=== PATIENT | female | born 1960 | race Caucasian/White ===

== ENCOUNTER → 2017-10-28 | Outpatient (CLI) | payer BC, SELFPAY | PROVIDERS: Visit Provider Obstetrics & Gynecology | DX: Z12.31 Encounter for screening mammogram for malignant neoplasm of breast (principal); N95.1 Menopausal and female climacteric states | CPT/HCPCS: 77067; G0202 ==

== ENCOUNTER → 2019-01-12 15:50 | Outpatient (CLI) | payer BC, SELFPAY ==
--- NOTE | 2019-01-12 15:54 | MM_ITS ---
MM Dig screening mamm BI w/CAD ORDERING PHYSICIAN : ARUNA Albarado PATIENT AGE: 58 years GENDER: Female COMPARISON: October 2017, August 20162012. Also June 20102010 INDICATION: Routine SCREENING no hormones no new complaints. Family history. Maternal grandmother TECHNIQUE: Standard CC and MLO images were obtained. R2 CAD reviewed. Additional left breast MLO and CC nipple profile views performed.. FINDINGS: Low-density breast bilaterally with no new dominant mass nor suspicious calcifications. No significant new findings RIGHT BREAST:No new areas of significant concern. Small area of density central right breast on cc view is seen on 2009 and 2010 mammogram.-. Stable feature. LEFT BREAST:No new areas of concern . Stable small intramammary nodes deep breast IMPRESSION: No significant new areas of concern bowel follow-up in one year recommended. BI-RADS Category: 2 Benign Finding(s) RECOMMENDED FOLLOW-UP: 1YR 1 YEAR FOLLOW-UP (A letter has been sent to the patient regarding results of the study.)
== END ==
PROVIDERS: PCP Physician Assistant; Visit Provider Physician Assistant
DX: Z12.31 Encounter for screening mammogram for malignant neoplasm of breast (principal)
CPT/HCPCS: 77067

== ENCOUNTER → 2019-01-31 12:15 | Outpatient (CLI) | payer BC, SELFPAY ==
--- NOTE | 2019-01-31 12:19 | XR_ITS ---
XR knee LT 3V HISTORY: ITS.REASON: BILAT KNEE PAIN ORDERING PHYSICIAN: Nissa Hensley MD PATIENT AGE: 58 years COMPARISON: Right knee same date FINDINGS: No fracture or dislocation. No lytic or blastic change. Normal mineralization. No significant arthritic changes evident. There is minor spurring of the tibial spines. No other significant findings IMPRESSION: Minor degenerative changes as noted, no fracture seen
--- NOTE | 2019-01-31 12:19 | XR_ITS ---
XR knee RT 3V HISTORY: ITS.REASON: BILAT KNEE PAIN ORDERING PHYSICIAN: Nissa Hensley MD PATIENT AGE: 58 years COMPARISON: Left knee same date FINDINGS: No fracture or dislocation. No lytic or blastic change. Normal mineralization. No significant arthritic changes evident. There is minor spurring of the tibial spines. No other significant findings IMPRESSION: Minor degenerative change as noted
== END ==
PROVIDERS: PCP Emergency Medicine; Visit Provider Emergency Medicine
DX: M25.562 Pain in left knee (principal); M25.561 Pain in right knee
CPT/HCPCS: 73562

== ENCOUNTER → 2020-05-15 10:43 | Outpatient (CLI) | payer BC, SELFPAY ==
--- NOTE | 2020-05-15 10:47 | MM_ITS ---
PROCEDURE: MM DIG SCREENING MAMM BI W/CAD Digital Breast Tomosynthesis Included CLINICAL INDICATION: SCREENING There is a history of breast cancer in patient's maternal grandmother diagnosed after menopause. COMPARISON: [facility] DIG MAMM-SCREEN NAUN from 08/17/2013 [facility] DIG MAMM-SCREEN NAUN from 08/26/2016 [facility] DIG MAMM-SCREEN NAUN W/CAD from 10/28/2017 [facility] MM Dig screening mamm BI w/CAD from 01/12/2019 TECHNIQUE: Standard CC and MLO images and 3D Tomosynthesis was obtained. R2 CAD reviewed. FINDINGS: The breasts are composed primarily of fat with minimal scattered fibroglandular densities throughout each breast. There is a low-lying node left axilla. There is no new or suspicious lesion in either breast and no suspicious microcalcifications. There couple of stable tiny benign-appearing nodular densities right breast. IMPRESSION: Fatty type breast parenchyma with no suspicious lesions seen BI-RAD Category: 2 Benign Finding(s) FOLLOW-UP: 1YR 1 Year Follow-up (A letter has been sent to the patient regarding results of the study.) Dictated by: Dr. Antione Zavala MD 05/17/2020 15:[address] Antione Zavala MD in [place] 05/17/2020 15:48
== END ==
PROVIDERS: PCP Physician Assistant; Visit Provider Physician Assistant
DX: Z12.31 Encounter for screening mammogram for malignant neoplasm of breast (principal)
CPT/HCPCS: 77063; 77067

== ENCOUNTER → 2021-03-26 13:12 | Outpatient (POV) | payer BC, SELFPAY | PROVIDERS: Visit Provider Dermatology | DX: Z00.00 Encounter for general adult medical examination without abnormal findings (principal) ==

== ENCOUNTER → 2021-11-19 11:41 | Outpatient (CLI) | payer BC, SELFPAY ==
--- NOTE | 2021-11-19 11:47 | XR_ITS ---
FINAL REPORT CLINICAL HISTORY: COVID OUTPATIENT non smoker, no sx, covid exposure FINDINGS: SINGLE VIEW CHEST. The heart is normal in size. The mediastinum is unremarkable. The lungs are clear. There is no pneumothorax. There is a sclerotic focus in the proximal right humerus of uncertain etiology. IMPRESSION: No acute cardiopulmonary process. Sclerotic focus in proximal right humerus of uncertain etiology. Consider follow-up radiographs. Reviewed, Interpreted and Dictated by Wicho Flores III, MD Transcribed by Kathy Paez Authenticated by Wicho Flores III, MD on 11/19/2021 12:41:39 PM [facility]
[2021-11-19 12:17] LABS: Adenovirus,PCR Not Detected (NotDetected); Bordetella Pertussis Not Detected (NotDetected); Chlamydophila Pneumoniae, PCR Not Detected (NotDetected); Coronavirus 229E Not Detected (NotDetected); Coronavirus NL63 Not Detected (NotDetected); Coronavirus OC43 Not Detected (NotDetected); Coronovirus HKU1,PCR Not Detected (NotDetected); Human Metapneumovirus Not Detected (NotDetected); Influenza A, PCR Not Detected (NotDetected); Influenza AH1, 2009 Not Detected (NotDetected); Influenza AH1, PCR Not Detected (NotDetected); Influenza AH3,PCR Not Detected (NotDetected); Influenza B, PCR Not Detected (NotDetected); Mycoplasma Pneumoniae, PCR Not Detected (NotDetected); Parainfluenza 1, PCR Not Detected (NotDetected); Parainfluenza 2, PCR Not Detected (NotDetected); Parainfluenza 3, PCR Not Detected (NotDetected); Parainfluenza 4, PCR Not Detected (NotDetected); Respiratory Syncytial Virus Not Detected (NotDetected); Rhinovirus/Enterovirus Not Detected (NotDetected)
[2021-11-19 12:28] LABS: Basophils # 0.1 K/mm3 (0-0.2); Basophils % 1.5 % (0.1-2.0); Eosinophils # 0.2 K/mm3 (0.0-0.4); Eosinophils % 2.5 % (0.1-12.0); Hematocrit 46.2 % (37.0-47.0); Hemoglobin 14.2 g/dL (12.2-16.2); Lymphocytes # 3.2 K/mm3 (0.7-4.5); Lymphocytes % 41.7 % (10-50); Mean Corpuscular HGB Conc 30.7 g/dL (31.8-35.4); Mean Corpuscular Hemoglobin 28.7 pg (27.0-31.2); Mean Corpuscular Volume 93.5 fl (81-99); Mean Platelet Volume 7.4 fl (7.4-10.4); Monocytes # 0.7 K/mm3 (0.1-1.0); Monocytes % 8.7 % (1.7-9.3); Neutrophils # 3.5 K/mm3 (1.8-7.8); Neutrophils % 45.7 % (37.0-80.0); Platelet Count 388 K/mm3 (142-424); Red Blood Count 4.95 M/mm3 (4.20-5.40); Red Cell Distribution Width 14.7 % (11.5-17.5); White Blood Count 7.7 K/mm3 (4.8-10.8)
[2021-11-19 16:05] LABS: Coronavirus 19, PCR Detected (NotDetected)
== END ==
PROVIDERS: PCP Physician Assistant; Visit Provider Family Medicine
DX: U07.1 COVID-19 (principal)
CPT/HCPCS: 36415; 71045; 85025; 87581; 87632; 87798; C9803; U0003; U0005

== ENCOUNTER → 2021-12-10 12:29 | Outpatient (CLI) | payer BC, SELFPAY ==
--- NOTE | 2021-12-10 13:14 | ECG_ITS ---
APPROVED REPORT Exam: Resting ECG HR:62 bpm ECG Measurements Heart Rate 62 AXES WY 182 P 68 QRSd 106 QRS 134 QT 378 T 68 QTc 384 Conclusion SINUS RHYTHM RIGHT AXIS DEVIATION [QRS AXIS > 100] LOW QRS VOLTAGE [QRS DEFLECTION < 0.5/1.0 mV IN LIMB/CHEST LEADS] ABNORMAL ECG UNCONFIRMED REPORT Electronically signed by : Bryson Montana MD 12/10/2021 17:44:13
== END ==
PROVIDERS: PCP Family Medicine; Visit Provider Family Medicine
DX: R07.9 Chest pain, unspecified (principal)
CPT/HCPCS: 93005

== ENCOUNTER → 2021-12-17 11:06 | Outpatient (CLI) | payer BC, SELFPAY ==
--- NOTE | 2021-12-17 | CA_ITS ---
APPROVED REPORT Exam: Exercise Treadmill Technologist: Radha Clay Ht: 5 ft 6 in Wt: 224 lbs BSA: 2.10 m2 HR: 70 bpm BP: 148/66 mmHg Indications: Chest pain Medical History Medications: Omeprazole,,,,, Hyoscyamine,,,,, Amlod/Benazepril,,,,, Sertraline,,,,, Stress Test Details Test: Manual Treadmill HR Resting HR: 83 bpm Max Heart Rate (APMHR): 157.174808 bpm Max HR Achieved: 141 bpm Target HR (85% APMHR): 133.527135 bpm % of APMHR: 89.81 Recovery HR: 90 bpm BP Resting BP: 148.0/66.0 mmHg Max BP: 159.0/71.0 mmHg Recovery BP: 126.0/76.0 mmHg ECG Resting ECG: Normal sinus rhythm, rightward axis, low voltage QRS, poor R wave progression Clinical Exercise duration: 06:15 min Highest Stage Achieved: Exercise capacity: 5.3 METs Stress ECG Conclusion Patient exercised 6:15 total; 5 minutes in Stage I Roverto Protocol, then speed was increased to 2 mph the last 1:15. Symptoms: Shortness of air. No chest pain. Arrhythmias/Ectopy: None ST-T Changes: Normal ST response to exercise. Conclusion: Normal GXT. Myoview images reported separately. Test Summary REST . . . . . . . Sitting REST . . . . . . . Sitting REST 03:48 0.0 0.0 83 . 148/ 66 . . Stage 1 01:00 10.0 1.7 100 . . . . Stage 1 02:00 10.0 1.7 . . . . . Stage 1 . . . . . . . Stage held Stage 1 03:00 10.0 1.7 123 . . . . Stage 1 . . . . . . . Shortness of Breath Stage 1 04:00 10.0 1.7 130 . . . . Stage 1 . . . . . . . Myoview Injected Stage 1 . . . . . . . Protocol changed to Manual Treadmill Stage 1 05:00 10.0 2.0 133 . . . . Stage 1 06:00 10.0 2.0 139 . . . . Stage 1 . . . . . . . Stage resumed Stage 1 06:15 10.0 2.0 140 . . . Stop exercise at 06:15 RECOVERY 01:00 0.0 0.0 130 . 146/ 80 . . RECOVERY 02:00 0.0 0.0 113 . 146/ 80 . . RECOVERY 03:00 0.0 0.0 100 . 146/ 80 . . RECOVERY 04:00 0.0 0.0 97 . 159/ 71 . . RECOVERY 05:00 0.0 0.0 89 . 126/ 76 . . RECOVERY 05:26 0.0 0.0 91 . 126/ 76 . . Electronically signed by : Hood Ponce MD 12/17/2021 19:38:28
--- NOTE | 2021-12-17 11:11 | NM_ITS ---
APPROVED REPORT Exam: Nuclear Stress Test Indication: Chest pain, SOB, Fatigue, HTN, Family history Patient Location: Outpatient Stress Tech: Radha Clay NM Tech:Jacquelin Mancilla, ARRT, RT (R)(N) Ht: 5 ft 6 in Wt: 224 lbs Bra Size: 40DD HR: 70 bpm BP: 148/66 mmHg BSA: 2.10 m2 BMI: 36.1 History: Chest pain, SOB, Fatigue, HTN, Family history Procedure: Patient exercised on Roverto protocol 6:15 minutes and sec, resting heart rate 70 bpm, resting blood pressure 148/66 mmHg, with exercise maximum heart rate achived was 141 bpm which is 90 % of the maximum predicted heart rate and blood pressure was 159/71 mmHg. Test was stopped due to SOA. Patient denied any complaint of chest pain. Patient has poor exercise capacity, achieved 5.3 METs of workload on treadmill, the blood pressure response to exercise was Abnormal. Electrocardiogram Resting electrocardiogram showed sinus rhythm, with exercise there is less than 1.[address] segment depression noted from the baseline EKG. The EKG portion of the exercise Myoview is negative for ischemia. Cardiac Stress and Resting SPECT Images: Cardiac Stress and Resting SPECT images were obtained using technetium 99m Myoview 31.1 mCi stress and 10.21 mCi at rest. Gated SPECT for analysis of segmental wall motion and calculation of the ejection fraction also done. Cardiac stress and rest SPECT images show uniform myocardial activity without segmental perfusion abnormality, computer derived ejection fraction is 67% with no regional wall motion abnormality, right ventricle is normal size and contractility. Conclusion: 1. The EKG portion of the exercise Myoview is negative for ischemia, patient has poor exercise capacity 5.3 METs of workload on treadmill, the blood pressure response to exercise was abnormal, there was no exercise-induced chest discomfort. 2. No scintigraphic evidence of reversible ischemia seen at this level of exercise, compared to ejection fraction 67% with no regional wall motion abnormality, right ventricle is normal size and contractility. Electronically signed by : Hood Ponce MD 12/17/2021 19:56:34
--- NOTE | 2021-12-17 13:17 | HMH.ITSHM ---
Current Home Medications as stated by this patient Shanel Luu or claims service representative. []SERTALINE OMEPRAZOLE AMLOD/BENAZP HYOSCYAMINE
== END ==
PROVIDERS: PCP Family Medicine; Visit Provider Family Medicine
DX: R07.9 Chest pain, unspecified (principal)
CPT/HCPCS: 78452; 93017; A9502

== ENCOUNTER → 2022-05-07 09:39 | Outpatient (CLI) | payer BC, SELFPAY ==
--- NOTE | 2022-05-07 09:43 | XR_ITS ---
FINAL REPORT CLINICAL HISTORY: A PLACE WAS SEEN ON ARM DURING ANOTHER XR. CHECKING SPOT FINDINGS: RIGHT HUMERUS Two views were obtained. There is no acute fracture or dislocation. The joint spaces appear normal. No soft tissue abnormality is identified. There is a 15 mm sclerotic focus in the proximal humerus which is nonspecific, may represent bone island or other sclerotic lesion. IMPRESSION: Sclerotic focus in the proximal humerus as above. Consider follow-up radiographs or bone scan. Reviewed, Interpreted and Dictated by Wicho Flores III, MD Transcribed by Cassandra Esparza Authenticated and [facility]
== END ==
PROVIDERS: PCP Family Medicine; Visit Provider Family Medicine
DX: R93.6 Abnormal findings on diagnostic imaging of limbs (principal)
CPT/HCPCS: 73060

== ENCOUNTER → 2023-10-07 22:00 | Outpatient (CLI) | payer BC, SELFPAY ==
[2023-10-07 18:23] LABS: Coronavirus 19, PCR Not Detected (NotDetected); Influenza A, PCR Not Detected (NotDetected); Influenza B, PCR Not Detected (NotDetected)
== END ==
PROVIDERS: PCP Nurse Practitioner Family; Visit Provider Nurse Practitioner Family
DX: R05.9 Cough, unspecified (principal)
CPT/HCPCS: 87636

== ENCOUNTER 2024-04-21 13:10 | Outpatient (CLI) | payer BC, SELFPAY ==
--- NOTE | 2024-04-21 13:13 | MM_ITS ---
PROCEDURE INFORMATION: Exam: MG Bilateral Screening 3D Mammography Exam date and time: 04/21/2024 1:11 PM Age: 63 years old Clinical indication: Screening examination TECHNIQUE: Imaging protocol: Bilateral Screening tomosynthesis and 2D mammography including computer-aided detection (CAD) when performed. COMPARISON: 1. MG MM DIG SCREENING MAMM BI W/CAD 05/15/2020 10:57 AM 2. MG SCBI MM Dig screening mamm BI w/CAD 01/12/2019 4:27 PM FINDINGS: MAMMOGRAPHY: Breast composition: The breasts are almost entirely fatty. Mass: None. Architectural distortion: None. Calcifications: No suspicious calcifications. Asymmetric density: None. Skin thickening: None. Axillary adenopathy: None. IMPRESSION: No mammographic evidence of malignancy. Annual screening is recommended unless otherwise clinically indicated. ASSESSMENT: BI-RADS Category 1: Negative
== END 2024-04-21 23:59 | disposition home or self-care (01) ==
LOC: RAD 13:10
PROVIDERS: PCP Physician Assistant; Visit Provider Physician Assistant
DX: Z12.31 Encounter for screening mammogram for malignant neoplasm of breast (principal)
CPT/HCPCS: 77063; 77067

== ENCOUNTER 2024-07-06 19:09 | Outpatient (CLI) | payer BC, SELFPAY ==
[2024-07-06 18:25] LABS: Bordetella Pertussis Not Detected (NotDetected); Chlamydophila Pneumoniae, PCR Not Detected (NotDetected); Coronavirus 19, PCR Not Detected (NotDetected); Coronavirus 229E Not Detected (NotDetected); Coronavirus NL63 Not Detected (NotDetected); Coronavirus OC43 Not Detected (NotDetected); Coronovirus HKU1,PCR Not Detected (NotDetected); Human Metapneumovirus Not Detected (NotDetected); Influenza A, PCR Not Detected (NotDetected); Influenza AH1, 2009 Not Detected (NotDetected); Influenza AH1, PCR Not Detected (NotDetected); Influenza AH3,PCR Not Detected (NotDetected); Influenza B, PCR Not Detected (NotDetected); Mycoplasma Pneumoniae, PCR Not Detected (NotDetected); Parainfluenza 1, PCR Not Detected (NotDetected); Parainfluenza 2, PCR Not Detected (NotDetected); Parainfluenza 3, PCR Not Detected (NotDetected); Parainfluenza 4, PCR Not Detected (NotDetected); Respiratory Syncytial Virus Not Detected (NotDetected); Rhinovirus/Enterovirus Not Detected (NotDetected)
[2024-07-11 22:13] LABS: Adenovirus,PCR Not Detected (NotDetected)
== END 2024-07-06 23:59 | disposition home or self-care (01) ==
LOC: LAB.DROPOF 19:09
PROVIDERS: PCP Nurse Practitioner Family; Visit Provider Nurse Practitioner Family
DX: R09.89 Other specified symptoms and signs involving the circulatory and respiratory systems (principal)
CPT/HCPCS: 87265; 87486; 87581; 87632; 87635

== ENCOUNTER 2025-05-12 08:21 | Outpatient (CLI) | payer BC, SELFPAY ==
--- OUTSIDE RECORDS SUMMARY | 2023-12-18 07:00 | XMS_ITS ---
Author Organization [facility] Address [address] [facility] [address] [place] [id number] Care Team Providers Care Senior Teller Name Role Phone Aric Mejia Primary Care Provider [phone] Chelo Diego Unavailable [phone] Allergies Allergen (clinical drug ingredient) Drug/Non Drug Allergy documented on EMR Reaction Allergy Type Onset Date Status Penicillin Unknown Drug Allergy Active Results Component Value Reference Range Notes CBC Fingerstick (in house) Reviewed date:12/18/2023 12:34:57 PM Interpretation: Performing Lab: Notes/Report: wbc 10.3 3.5 - 10 lym 26.4 15 - 50 mid 5.6 2 - 15 gran 68.0 35 - 80 rbc 4.93 3.5 - 5.5 hgb 13.9 11.5 - 16.5 hct 43.0 35 - 55 mcv 87.3 75 - 100 mch 28.2 25 - 35 mchc 32.3 31 - 38 plat 338 100 - 400 P-Amylase Reviewed date:12/21/2023 09:31:40 AM Interpretation:Normal Performing Lab: Notes/Report: Test performed by [facility] [address] , [place] [address] Keven Leary MD, Molding Technician CLIA: [id number] Amylase 47 28-100 U/L P-Comprehensive Metabolic Pa steve (CMP) Reviewed date:12/21/2023 09:31:40 AM Interpretation:Normal Performing Lab: Notes/Report: Test performed by [facility] [address] [place], [place] [address] , [place] [address] Keven Leary MD, Molding Technician CLIA: [id number] Sodium 142 135-145 mEq/L Potassium 4.4 3.5-5.3 mEq/L Chloride 104 97-108 mEq/L CO2 22 22-32 mEq/L Glucose 96 65-99 mg/dL BUN 12 8-23 mg/dL Creatinine 0.63 0.50-1.00 mg/dL Calcium 9.2 8.6-10.4 mg/dL eGFR by Creatinine 98 >59 mL/min/1.73m2 Protein 7.4 6.0-8.3 g/dL Albumin 4.7 3.5-5.3 g/dL Alkaline Phosphatase 94 35-121 IU/L ALT (SGPT) 23 <5-47 IU/L AST (SGOT) 23 <5-40 IU/L Bilirubin, Total 0.4 <0.2-1.2 mg/dL A/G Ratio 1.7 1.1-2.5 mg/dL P-Lipase Reviewed date:12/21/2023 09:31:40 AM Interpretation:Normal Performing Lab: Notes/Report: Test performed by [facility] [address] [place] [address] [place] [address] Keven Leary MD, Molding Technician CLIA: [id number] Lipase 22.0 13.0-60.0 u/L P-TSH reflex to FT4 Reviewed date:12/21/2023 09:31:40 AM Interpretation:Normal Performing Lab: Notes/Report: Test performed by [facility] [address] , [place] [id number] Keven Leary MD, Molding Technician CLIA: [id number] TSH reflex to FT4 1.04 0.43-5.25 mU/L REASON FOR VISIT sour, bloated stomach Medications Medication SIG (Take, Route, Frequency, Duration) Notes Start Date End Date Status Carafate 1 GM 1 tab(s) orally Two times a day 12/26/2021 Not-Taking Multivitamin - 1 tab(s) orally once a day; Duration: 30 day(s) Active Align 4 MG 1 cap(s) orally once a day; Duration: 28 day(s) 12/18/2021 Active Omeprazole 40 MG 1 cap(s) orally once a day; Duration: 90 days Active Sertraline HCl 100 MG 1 tab(s) orally on ce a day; Duration: 90 days Active Lotrel 10-20 MG 1 cap(s) orally once a day; Duration: 90 days Active Hyoscyamine Sulfate SL 0.125 MG 1 tablet under the tongue and allow to dissolve as needed Sublingual Three times a day, prn for abdominal cramping 12/18/2023 Active levoFLOXacin 500 MG 1 tablet Orally Once a day; Duration: 7 days 12/18/2023 Active Vital Signs Blood pressure systolic 112 mm Hg 12/18/19 24 Blood pressure diastolic 80 mm Hg 024 Heart Rate 84 /min 12/18/2023 Height 66.50 in 12/18/2023 Weight 232.0 lbs 12/18/2023 BMI 36.88 kg/m2 12/18/2023 Encounters Encounter Location Date Provider Diagnosis [facility] [address], [place] [id number] 12/18/2023 Chelo Diego Epigastric pain R10. 13 ; Abdominal cramping R10.9 and Acute diarrhea R19.7 Assessments Encounter Date Diagnosis (ICD Code) Assessment Notes Treatment Notes Treatment Clinical Notes Section Notes 12/18/2023 Epigastric pain (ICD-10 - R10.13) 12/18/2023 Abdominal cramping (ICD-10 - R10.9) 12/18/2023 Acute diarrhea (ICD-10 - R19.7) Plan Of Treatment Medication Medication Name Sig Start Date Stop Date Notes Hyoscyamine Sulfate SL 0.125 MG 1 tablet under the tongue and allow to dissolve as needed Sublingual Three times a day, prn for abdominal cramping 12/18/2023 levoFLOXacin 500 MG 1 tablet Orally Once a day; Duration: 7 days 12/18/2023 Next Appt Details Follow Up: 1 Week, Reason: Progress Notes * JHONY ELLISMINHOB: [birth year] (64 yo F)Acc No.[id number]:12/18/2023 Progress Notes Patient: SHELLY EDMONDSON Provider: ARUNA Tellez :1960 A ge:63 Y S ex:Female Date:12/18/2023 Address:[address] [place] [address], [place], [id number] Pcp:Aric Mejia Subjective: * Chief Complaints: * 1 . Sour, bloated stomach. * HPI: G astroenterology: The pt is here today with c/o epigastric abdominal pain, bloating and nausea. Pt states she had some diarrhea this morning. Pt states on Thursday she ate something with a lot of mayonaise in it and since then she has not been able to eat much. 63 year old female presents with c/o Abdominal Pain e pigastric. c/o Acid Reflux. c/o Nausea. c/o Diarrhea. Denies : Vomiting. D enies : Fever. * ROS: C ARDIOLOGY: no C hest pain. n o S hortness of breath. ? G ASTROENTEROLOGY: no N ausea. n o V omiting. n o D iarrhea.? U ROLOGY: no D ifficulty urinating. n o B lood in urine. * Medical History: M edical History Verified. * Surgical History: c holecystectomy 1993, child 1982, child 1991. * Hospitalization/Major Diagno stic Procedure: s ee above . * Family History: F ather: , diagnosed with Cancer. M other: alive, diagnosed with Heart Disease.?4 sister(s) - healthy. 2 daughter(s) - healthy. . Father with biliary cancer. * Social History: C URRENT TOBACCO USE: No . C affeine: yes, frequency:. Exercise: no. Home smoke detector use: yes. Marital Status: Single. Past smoking status: never smoked. Recreational drug use: no. Alcohol: No. Sexually active: no. * Medications: T aking Lotrel 10-20 MG Capsule 1 cap(s) orally once a day , Taking Omeprazole 40 MG Capsule Delayed Release 1 cap(s) orally once a day , Taking Sertraline HCl 100 MG Tablet 1 tab(s) orally once a day , Taking Multivitamin - Tablet 1 tab(s) orally once a day , Taking Align 4 MG Capsule 1 cap(s) orally once a day , Not-Taking Carafate 1 GM Tablet 1 tab(s) orally Two times a day , Medication List reviewed and reconciled with the patient * Allergies: P enicillin. Objective: * Vitals: W t:232.0, Temp:98.4, BP:112/80, HR:84, Nurse:JUSTIN, Ht: 66.50, BMI:36.88. * Examination: G astroenterology: General Appearance: p leasant, NAD. O ral cavity: n ormal. S clera: a nicteric. H eart sounds: r egular, normal S1 S2, no murmurs. L ungs: c lear, no rales or wheezes. A bdomen: BS present, soft, no guarding or rigidity, no masses felt, ttp in the epigastric area. Assessment: * Assessment: 1. E pigastric pain - R10.13 (Primary) 2 . A bdominal cramping - R10.9 3 . A cute diarrhea - R19.7 Plan: * Treatment: Value Reference Range A mylaskevin 47 28-100 - U/L * Theresa Crespo 12/21/2023 9: 30:56 AM >Patient informed of normal results. ?LAB: P-Comprehensive Metabolic Panel (CMP) (Collection Date & Time - 12/18/2023 10:50 AM)?Normal* Value Reference Range A /G Ratio 1.7 1.1-2.5 - mg/dL * A lbumin 4.7 3.5-5.3 - g/dL * A lkaline Phosphatase 94 35-121 - IU/L * A LT (SGPT) 23 <5-47 - IU/L * A ST (SGOT) 23 <5-40 - IU/L * B ilirubin, Total 0.4 <0.2-1.2 - mg/dL * B UN 12 8-23 - mg/dL * C alcium 9.2 8.6-10.4 - mg/dL * C hloride 104 97-108 - mEq/L * C O2 22 22-32 - mEq/L * C reatinine 0.63 0.50-1.00 - mg/dL * G lucose 96 65-99 - mg/dL * P otassium 4.4 3.5-5.3 - mEq/L * S odium 142 135-145 - mEq/L * P rotein 7.4 6.0-8.3 - g/dL * e GFR by Creatinine 98 >59 - mL/min/1.73m2 * Theresa Crespo 12/21/2023 9: 30:56 AM >Patient informed of normal results. ?LAB: P-Lipase (Collection Date & Time - 12/18/2023 10:50 AM)?Normal* Value Reference Range L ipase 22.0 13.0-60.0 - u/L * Theresa Crespo 12/21/2023 9: 30:56 AM >Patient informed of normal results. ?LAB: P-TSH reflex to FT4 (Collection Date & Time - 12/18/2023 10:50 AM)? Normal* Value Reference Range T SH reflex to FT4 1.04 0.43-5.25 - mU/L * Theresa Crespo 12/21/2023 9: 30:56 AM >Patient informed of normal results. ?LAB: CBC Fingerstick (in house) (Collection Date & Time - 12/18/2023)* Value Reference Range w bc 10.3 3.5 - 10 * l ym 26.4 15 - 50 * m id 5.6 2 - 15 * g ran 68.0 35 - 80 * r bc 4.93 3.5 - 5.5 * h gb 13.9 11.5 - 16.5 * h ct 43.0 35 - 55 * m cv 87.3 75 - 100 * m ch 28.2 25 - 35 * m chc 32.3 31 - 38 * p lat 338 100 - 400 * Theresa Crespo 12/18/2023 11 :15:05 AM > , Provider reviewed results while patient in office.Chelo Diego 12/18/2023 12:34:55 PM > * Procedure Codes: 3 6416 CAPILLARY BLOOD DRAW, 68005 CBC WITH AUTO DIFF * Follow Up: 1 Week * Images: Billing Information: * Visit Code: 33784 Office Visit, Est Pt., Level 3. * Procedure Codes: 24475 CAPILLARY BLOOD DRAW. 39394 CBC WITH AUTO DIFF. * Electronic signature of ARUNA Hall on 05/12/2025 at 08:23 AM EDT Sign off status: Pending * Provider: ARUNA Tellez Date: 0 12/18/2023 Generated for Jaylan cardenas/Erica/Natalia on: 0 05/12/2025 08:23 AM EDT History and Physical Notes * HPI (History of Present Illness) Category Sub-Category Detail Notes Category Not es Gastroenterology Fever Vomiting Abdominal Pain epigastric Diarrhea Nausea Acid Reflux Examination Category Sub-Category Detail Notes Category Not es Gastroenterology Oral cavity: normal Sclera: anicteric Heart sounds: regular, normal S1 S 2, no murmurs Lungs: clear, no rales or w heezes Abdomen: BS present, soft, no guarding or rigidity, no masses felt, ttp in the epigastric area General Appearance: pleasant, NAD
--- OUTSIDE RECORDS SUMMARY | 2023-12-25 12:00 | XMS_ITS ---
Author Organization [facility] Address [address] [place] [id number] Care Team Providers Care Supervisor Cigar Processing Name Role Phone Vesper, Aric Primary Care Provider Chelo Diego Unavailable [phone] Allergies Allergen (clinical drug ingredient) Drug/Non Drug Allergy documented on EMR Reaction Allergy Type Onset Date Status Penicillin Unknown Drug Allergy Active Results Component Value Reference Range Notes CBC Venipuncture (in house) Reviewed date:12/25/2023 04:49:08 PM Interpretation: Performing Lab: Notes/Report: wbc 10.0 3.5 - 10 lymph 35.6% 15 - 50 mid 6.2% 2 - 15 gran 58.2% 35 - 80 rbc 4.50 3.5 - 5.5 hgb 12.8 11.5 - 16.5 hct 38.8 35 - 55 mcv 86.3 75 - 100 mch 28.4 25 - 35 mchc 32.9 31 - 38 platlet 300 100 - 400 Reason For Referral Diagnosis 1 Epigastric pain (R10 .13) [facility] Referring Provider First Name Chelo Referring Provider Last Name Brandie Referring Provider Speciality Physician 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 Referred Provider Specialty Gastroentero logy General Notes Chelo Diego 12/25 4:34:36 PM > Pt needs an appt with Dr. Escalera or his partner, Iesha Lorenz 12/28/2023 1:16:23 PM > faxed referral, they will contact pt Referral Priority Routine REASON FOR VISIT 1 Week Follow Up Medications Medication SIG (Take, Route, Frequency, Duration) Notes Start Date End Date Status Hyoscyamine Sulfate SL 0.125 MG 1 tablet under the tongue and allow to dissolve as needed Sublingual Three times a day, prn for abdominal cramping Active Sertraline HCl 100 MG 1 tab(s) orally on ce a day; Duration: 90 days Active Multivitamin - 1 tab(s) orally once a day; Duration: 30 day(s) Active Carafate 1 GM 1 tab(s) orally Two times a day 12/26/2021 Not-Taking Align 4 MG 1 cap(s) orally once a day; Duration: 28 day(s) 12/18/2021 Active Lotrel 10-20 MG 1 cap(s) orally once a day; Duration: 90 days Active Omeprazole 40 MG 1 cap(s) orally once a day; Duration: 90 days Active Vital Signs Blood pressure systolic 114 mm Hg 12/25/19 24 Blood pressure diastolic 80 mm Hg 024 Heart Rate 73 /min 12/25/2023 Height 66.50 in 12/25/2023 Weight 232.6 lbs 12/25/2023 BMI 36.98 kg/m2 12/25/2023 Encounters Encounter Location Date Provider Diagnosis [facility] [address] [facility] [address] [place], [place] [id number] 12/25/2023 Chelo Crowdy Epigastric pain R10. 13 ; Abdominal cramping R10.9 and Acute diarrhea R19.7 Assessments Encounter Date Diagnosis (ICD Code) Assessment Notes Treatment Notes Treatment Clinical Notes Section Notes 12/25/2023 Epigastric pain (ICD-10 - R10.13) Patient has had GI issues for years. Certain foods really upset her stomach. They levsin does help slightly. She states her sister had the same problems and ended up having surgery for a hiatal hernia. She would like to see GI. 12/25/2023 Abdominal cramping (ICD-10 - R10.9) Improved. 12/25/2023 Acute diarrhea (ICD-10 - R19.7) Improved. Plan Of Treatment Medication Medication Name Sig Start Date Stop Date Notes Hyoscyamine Sulfate SL 0.125 MG 1 tablet under the tongue and allow to dissolve as needed Sublingual Three times a day, prn for abdominal cramping Treatment Notes Assessment Notes Epigastric pain Patient has had GI i ssues for years. Certain foods really upset her stomach. They levsin does help slightly. She states her sister had the same problems and ended up having surgery for a hiatal hernia. She would like to see GI. Abdominal cramping Improved. Acute diarrhea Improved. Referrals Referral Date Details 12/25/2023 12/25/2023, . Gastro enterology Next Appt Details Follow Up: with GI, Reason: Progress Notes * KENIA ELLISOB: [birth year] (64 yo F)Acc No.[id number]:12/25/2023 Patient: SHELLY EDMONDSON Provider: ARUNA Tellez :1960 A ge:63 Y S ex:Female Date:12/25/2023 Address:[address] [place] [address], [facility] [id number] Pcp:Aric Mejia Subjective: * Chief Complaints: * 1 . 1 Week Follow Up. * HPI: G astroenterology: The patient is here for a follow up on abdominal cramping and bloating. Pt states she is doing better. Pt states she has finished the Levofloxacin. Denies : Abdominal Pain. D enies : Nausea. D enies : Vomiting. D enies : Diarrhea. D enies : Fever. * ROS: D ERMATOLOGY: no R allen. n o H leonor. G ASTROENTEROLOGY: no N ausea. n o [...] cap(s) orally once a day , Taking Hyoscyamine Sulfate SL 0.125 MG Tablet Sublingual 1 tablet under the tongue and allow to dissolve as needed Sublingual Three times a day, prn for abdominal cramping , Not-Taking Carafate 1 GM Tablet 1 tab(s) orally Two times a day , Medication List reviewed and reconciled with the patient * Allergies: P enicillin. Objective: * Vitals: W t:232.6, Temp:98.5, BP:114/80, HR:73, Nurse:JUSTIN, Ht: 66.50, BMI:36.98. * Examination: G astroenterology: General Appearance: p leasant, NAD. O ral cavity: n ormal. S clera: a nicteric. H eart sounds: r egular, normal S1 S2, no murmurs. L ungs: c lear, no rales or wheezes. A bdomen: B S present, soft, no guarding or rigidity, no masses felt, still slightly ttp in the epigastric area. Assessment: * Assessment: 1. E pigastric pain - R10.13 (Primary) 2 . A bdominal cramping - R10.9 3 . A cute diarrhea - R19.7 Plan: * Treatment: Value Reference Range w bc 10.0 3.5 - 10 * l ymph 35.6% 15 - 50 * m id 6.2% 2 - 15 * g ran 58.2% 35 - 80 * r bc 4.50 3.5 - 5.5 * h gb 12.8 11.5 - 16.5 * h ct 38.8 35 - 55 * m cv 86.3 75 - 100 * m ch 28.4 25 - 35 * m chc 32.9 31 - 38 * p latlet 300 100 - 400 * Estee uHll 12/25/2023 4:2 5:02 PM > , Provider reviewed results while patient in office.Chelo Diego 12/25/2023 4:49:07 PM > Notes: Patient has had GI issues for years. Certain foods really upset her stomach. They levsin does help slightly. She states her sister had the same problems and ended up having surgery for a hiatal hernia. She would like to see GI.? Referral To:. Gastroenterology??Gastroenterology ?Reason: 2.?Abdominal cramping? Notes: Improved.??3.?Acute diarrhea? Notes: Improved.?? * Procedure Codes: 8 5025 CBC WITH AUTO DIFF, 14669 VENIPUNCT, ROUTINE* * Follow Up: w ith GI * Images: Billing Information: * Visit Code: 71987 Office Visit, Est Pt., Level 3. * Procedure Codes: 25005 CBC WITH AUTO DIFF. 56601 VENIPUNCT, ROUTINE*. * Electronic signature of ARUNA Hall on 05/12/2025 at 08:23 AM EDT Sign off status: Pending * Provider: ARUNA Tellez Date: 0 12/25/2023 Generated for Jaylan cardenas/Erica/Jessicaitting on: 0 05/12/2025 08:23 AM EDT History and Physical Notes * HPI (History of Present Illness) Category Sub-Category Detail Notes Category Not es Gastroenterology Fever Vomiting Abdominal Pain Diarrhea Nausea Examination Category Sub-Category Detail Notes Category Not es Gastroenterology Oral cavity: normal Sclera: anicteric Heart sounds: regular, normal S1 S 2, no murmurs Lungs: clear, no rales or w heezes Abdomen: BS present, soft, no guarding or rigidity, no masses felt, still slightly ttp in the epigastric area General Appearance: pleasant, NAD Consultation Request Notes Referral Date Referring Provider Referred Provider Not es 12/25/2023 Chelo Diego Gastroenterology, .
--- OUTSIDE RECORDS SUMMARY | 2024-12-14 05:30 | XMS_ITS ---
Author Organization [facility] Address [address] [facility] [address] [place] [id number] Care Team Providers Care Food And Beverage Controller Name Role Phone Datto, Aric Primary Care Provider [phone] Chelo Loza [phone] Allergies Allergen (clinical drug ingredient) Drug/Non Drug Allergy documented on EMR Reaction Allergy Type Onset Date Status Penicillin Unknown Drug Allergy Active REASON FOR VISIT annual physical with checkup and refills Medications Medication SIG (Take, Route, Frequency, Duration) Notes Start Date End Date Status amLODIPine Besy-Benazepril HCl 10-20 MG 1 cap(s) Orally once daily; Duration: 90 days Active Omeprazole 40 MG 1 cap(s) Orally once daily; Duration: 90 days Active Sertraline HCl 100 MG 1 tab(s) orally on ce a day; Duration: 90 days Active Multivitamin - 1 tab(s) orally once a day; Duration: 30 day(s) Active Vital Signs Blood pressure systolic 120 mm Hg 12/14/19 25 Blood pressure diastolic 80 mm Hg 025 Heart Rate 80 /min 12/14/2024 Height 66.50 in 12/14/2024 Weight 230.4 lbs 12/14/2024 BMI 36.63 kg/m2 12/14/2024 Encounters Encounter Location Date Provider Diagnosis [facility] [address] [place] [id number] 12/14/2024 Chelo Diego Routine physical examination Z00.00 ; Essential hypertension I10 ; Anxiety F41.9 ; Gastroesophageal reflux disease with esophagitis without hemorrhage K21.00 ; Osteoporosis screening Z13.820 and Breast cancer screening by mammogram Z12.31 Assessments Encounter Date Diagnosis (ICD Code) Assessment Notes Treatment Notes Treatment Clinical Notes Section Notes 12/14/2024 Routine physical examination (ICD-10 - Z00.00) Will be having fasting labs checked at work and she will bring these results to be scanned into her chart. 12/14/2024 Essential hypertension (ICD-10 - I10) 12/14/2024 Anxiety (ICD-10 - F41.9) 12/14/2024 Gastroesophageal reflux disease with esophagitis without hemorrhage (ICD-10 - K21.00) 12/14/2024 Osteoporosis screening (ICD-10 - Z13.820) 12/14/2024 Breast cancer screening by mammogram (ICD-10 - Z12.31) 12/14/2024 Other Plan Of Treatment Medication Medication Name Sig Start Date Stop Date Notes amLODIPine Besy-Benazepril H Cl 10-20 MG 1 cap(s) Orally once daily; Duration: 90 days Omeprazole 40 MG 1 cap(s) Orally once daily; Duration: 90 days Sertraline HCl 100 MG 1 tab(s) orally on ce a day; Duration: 90 days Treatment Notes Assessment Notes Routine physical examination Will be hav ing fasting labs checked at work and she will bring these results to be scanned into her chart. Pending Test Test Name Order Date Bone density 12/14/2024 Mammogram 12/14/2024 Next Appt Details Follow Up: via phone to repo rt test results, Reason: Progress Notes * JHONY ELLISMINHOB: [birth year] (64 yo F)Acc No.[id number]:12/14/2024 Physical Patient: SHELLY EDMONDSON Provider: ARUNA Tellez :1960 A ge:64 Y S ex:Female Date:12/14/2024 Address:[address] [place] [address], [id number] Pcp:Aric Mejia Subjective: * Chief Complaints: * 1 . Annual physical with checkup and refills. * HPI: H PI: The patient is here for an annual check up. Pt states she is doing good except for some episodes of elevated BP. Pt states it has been in the 150's/80. Pt is not fasting. Will have fasting labs at work. 64 year old female presents with c/o Here for follow up on:.? * ROS: D ERMATOLOGY: no R allen. n o H leonor. G ASTROENTEROLOGY: no N ausea. n o V omiting. n o D iarrhea.? O PTHALMOLOGY: Negative for d enies issues with vision. U ROLOGY: no D ifficulty urinating. n [...] Sexually active: no. * Medications: T aking Multivitamin - Tablet 1 tab(s) orally once a day , Taking Sertraline HCl 100 MG Tablet 1 tab(s) orally once a day , Taking Omeprazole 40 MG Capsule Delayed Release TAKE 1 CAPSULE BY MOUTH ONCE DAILY , Taking amLODIPine Besy-Benazepril HCl 10-20 MG Capsule TAKE 1 CAPSULE BY MOUTH ONCE DAILY , Medication List reviewed and reconciled with the patient * Allergies: P enicillin. Objective: * Vitals: W t:230.4, Temp:98.4, BP:120/80, HR:80, Nurse:JUSTIN, Ht: 66.50, Repeat BP:110/68, BMI:36.63. * Examination: G eneral Examination: General Appearance: N AD. H EENT: u nremarkable.?Oral cavity: n o lesions, mucosa moist and WNL, no erythema. N mima: s upple, no lymphadenopathy. C hest: n ormal shape and expansion. H eart: R SR. L ungs: c lear to auscultation. A bdomen: bowel sounds present, soft and nontender, no organomegaly or masses, no guarding or rigidity. N eurologic Exam: I ntact, gait normal. S kin: n ormal, no rash. P eripheral pulses: n ormal (2+) bilaterally. E xtremities: n o leg edema. Assessment: * Assessment: 1. R outine physical examination - Z00.00 (Primary) 2 . E ssential hypertension - I10 3 . A nxiety - F41.9 4 . G astroesophageal reflux disease with esophagitis without hemorrhage - K21.00 5 . O steoporosis screening - Z13.820 6 . B reast cancer screening by mammogram - Z12.31 Plan: * Treatment: Notes: Will be having fasting labs checked at work and she will bring these results to be scanned into her chart.??2.?Essential hypertension? Refill amLODIPine Besy-Benazepril HCl Capsule, 10-20 MG, 1 cap(s), Orally, once daily, 90 days, 90 Capsule, Refills 3.??3.?Anxiety? Refill Sertraline HCl Tablet, 100 MG, 1 tab(s), orally, once a day, 90 days, 90 Tablet, Refills 3. ?4.?Gastroesophageal reflux disease with esophagitis without hemorrhage? Refill Omeprazole Capsule Delayed Release, 40 MG, 1 cap(s), Orally, once daily, 90 days, 90 Capsule, Refills 3.??5.?Osteoporosis screening?Imaging: Bone density* Chelo Diego 12/14/2024 1: 13:03 PM > Needs after April 21 on same day as mammogramSue Jacobson 12/15/2024 9:20:24 AM > faxed to [facility] Scheduling 6.?Breast cancer screening by mammogram?Imaging: Mammogram* Chelo Diego 12/14/2024 1: 13:25 PM > Needs after April 21 on same day as DEXATaSue fenton 12/15/2024 9:20:07 AM > faxed to [facility] Scheduling * Procedure Codes: 3 074F SYST BP LT 130 MM HG, 3079F DIAST BP 80-89 MM HG * Follow Up: v ia phone to report test results * Images: Billing Information: * Visit Code: 42249 Preventive Care Est Pt. Age 65 and over. Modifiers: 25 52432 Office Visit, Est Pt., Level 3. * Procedure Codes: 3074F SYST BP LT 130 MM HG. 3079F DIAST BP 80-89 MM HG. * Electronic signature of ARUNA Hall on 05/12/2025 at 08:23 AM EDT Sign off status: Pending * Provider: ARUNA Tellez Date: 0 12/14/2024 Generated for Luis Albertoi ng/Faserinag/eTransmitting on: 0 05/12/2025 08:23 AM EDT History and Physical Notes * HPI (History of Present Illness) Category Sub-Category Detail Notes Category Not es HPI Here for follow up on: Examination Category Sub-Category Detail Notes Category Not es General Examination HEENT: unremarkable Heart: RSR Lungs: clear to auscultatio n Abdomen: bowel sounds present , soft and nontender, no organomegaly or masses, no guarding or rigidity Extremities: no leg edema General Appearance: NAD Skin: normal, no rash Neurologic Exam: Intact, gait normal Neck: supple, no lymphaden opathy Oral cavity: no lesions, mucosa m oist and WNL, no erythema Peripheral pulses: normal (2+) bilatera lly Chest: normal shape and exp ansion
--- NOTE | 2025-05-12 08:24 | XR_ITS ---
FINAL REPORT CLINICAL HISTORY: SCREENING COMPARISON: None FINDINGS: Using L1-4, the bone mineral density of the spine is 0.823 g/cm2, corresponding to T-score of -2.0, compatible with osteopenia. Using the left hip, the bone mineral density of the femoral neck is 0.703 g/cm2, corresponding to a T-score of -1.3, consistent with osteopenia. Using the right hip, the bone mineral density of the femoral neck is 0.723 g/cm2, corresponding to a T-score of -1.1, consistent with osteopenia. FRAX 10 year fracture risk is 0.8% for a hip fracture and 8.0% for a major osteoporotic fracture. NOTE: T-score: Standard deviation compared with peak bone mass of young adult mean. *Following the recommendations of the International Society of Bone densitometry, classification of hip BMD is based on the lower of two T-scores; total hip or femoral neck. IMPRESSION: Diminished bone mineral density consistent with osteopenia. Reviewed, Interpreted and Dictated by Juan Pablo Abel MD Transcribed by Ryanne Mccain Authenticated and [facility]
--- NOTE | 2025-05-12 08:24 | MM_ITS ---
PROCEDURE INFORMATION: Exam: MG Bilateral Screening 3D Mammography Exam date and time: 05/12/2025 8:37 AM Age: 64 years old Clinical indication: Screening examination. Her maternal grandmother had breast cancer. TECHNIQUE: Imaging protocol: Bilateral Screening tomosynthesis and 2D mammography including computer-aided detection (CAD) when performed. COMPARISON: 1. MG MM DIG SCREENING MAMM BI W/CAD 04/21/2024 1:11 PM 2. MG MM DIG SCREENING MAMM BI W/CAD 05/15/2020 10:57 AM 3. MG SCBI MM Dig screening mamm BI w/CAD 01/12/2019 4:27 PM 4. MG DMSB DIG MAMM-SCREEN NAUN W/CAD 10/28/2017 3:32 PM FINDINGS: MAMMOGRAPHY: Breast composition: The breasts are almost entirely fatty. Mass: No suspicious mass. Architectural distortion: None. Calcifications: No suspicious calcifications. Asymmetric density: None. Skin thickening: None. Axillary adenopathy: None. IMPRESSION: No mammographic evidence of malignancy. Annual screening is recommended unless otherwise clinically indicated. ASSESSMENT: BI-RADS Category 1: Negative.
--- OUTSIDE RECORDS SUMMARY | 2025-05-12 08:24 | XMS_ITS | Patient Health Record ---
Author Organization [facility] Address [address] [place] [id number] Care Team Providers Care Laster Hand Name Role Phone Aric Mejia Primary Care Provider BeltranChelo brink Unavailable [phone] Allergies Allergen (clinical drug ingredient) Drug/Non Drug Allergy documented on EMR Reaction Allergy Type Onset Date Status Penicillin Unknown Drug Allergy Active Reason For Referral No Information Medications Medication SIG (Take, Route, Frequency, Duration) [...] once a day; Duration: 30 day(s) Active Immunizations Vaccine Route Administration Date Status Comme nts COVID 19 Moderna Unknown 11/21/2020 Administered COVID 19 Moderna IM Intramuscular 12/21/2020 Administered COVID 19 Moderna Unknown 08/28/2021 Administered COVID 19 Moderna Unknown 03/21/2022 Administered Fluzone PF Quad (6-35 months) Unknown 08/26/2018 Administered Fluzone PF Quad (6-35 months) Unknown 08/29/2020 Administered Fluzone PF Quad (6-35 months) Unknown 08/22/2021 Administered Fluzone PF Quad (6-35 months) Unknown 08/13/2022 Administered Hepatitis A (adult) Unknown 08/26/2018 Administered Hepatitis A (adult) Unknown 03/24/2019 Administered Prevnar (PCV20) Unknown 04/25/2024 Administered Tetanus Tdap-Adacel (over 7yrs) IM Intramuscular 07/14/2019 Administered Problems Problem Type SNOMED Code ICD Code Onset Dates Problem Status W/U Status Risk Notes Problem Essential hypertension (15108634) Essential hypertension (I10) Active confirmed Problem Anxiety (72724897) Anxiety (F41.9) Active confi rmed Problem Chronic pain (48698117) Other chronic pain (G89.29) Active confirmed Problem Post menopausal problems (N95.9) Active confirmed Problem Gastroesophageal reflux disease with esophagitis (disorder) (306644696) Gastroesophageal reflux disease with esophagitis without hemorrhage (K21.00) Active confirmed Vital Signs Heart Rate 80 /min 12/14/2024 Blood pressure diastolic 80 mm Hg 12/14/2024 Height 66.50 in 12/14/2024 Blood pressure systolic 120 mm Hg 12/14/2024 Weight 230.4 lbs 12/14/2024 BMI 36.63 kg/m2 12/14/2024 Encounters Encounter Location Date Provider Diagnosis [facility] [address] [facility] [address] [place], [place] [id number] 12/14/2024 Chelo Diego Routine physical examination Z00.00 ; Essential hypertension I10 ; Anxiety F41.9 ; Gastroesophageal reflux disease with esophagitis without hemorrhage K21.00 ; Osteoporosis screening Z13.820 and Breast cancer screening by mammogram Z12.31 [facility] [address] [facility] [address] [facility] [address] [place], [place] [id number] 08/30/2024 Aric [place] [facility] [address] [facility] [address] [facility] [address] [place], [place] [id number] 11/22/2024 Aric [place] [facility] [address] [facility] [address] [facility] [address] [place], [place] [id number] 02/27/2025 Aric [place] Assessments Encounter Date Diagnosis (ICD Code) Assessment Notes Treatment Notes Treatment Clinical Notes Section Notes 12/14/2024 Essential hypertension (ICD-10 - I10) 12/14/2024 Routine physical examination (ICD-10 - Z00.00) Will be having fasting labs checked at work and she will bring these results to be scanned into her chart. 12/14/2024 Anxiety (ICD-10 - F41.9) 12/14/2024 Gastroesophageal reflux disease with esophagitis without hemorrhage (ICD-10 - K21.00) 12/14/2024 Osteoporosis screening (ICD-10 - Z13.820) 12/14/2024 Breast cancer screening by mammogram (ICD-10 - Z12.31) 12/14/2024 Other Plan Of Treatment Pending Test Test Name Order Date Bone density 12/14/2024 Mammogram 12/14/2024 Insurance Providers Payer Name Payer Address Payer Phone Subscriber Number Group Number Insured Name Patient Relationship to Insured Coverage Start Date Coverage End Date YAIR [facility] [address] [place] [address] [id number] SHELLY ELLIS Self - patient is the insured Medical (General) History Surgical History Surgery Date(Month/Year) cholecystectomy 1993 child 1982 child 1991 Hospitalization History Reason Date(Month/Year) see above
== END 2025-05-12 23:59 | disposition home or self-care (01) ==
LOC: RAD 08:21
PROVIDERS: PCP Physician Assistant; Visit Provider Physician Assistant
DX: Z12.31 Encounter for screening mammogram for malignant neoplasm of breast (principal); Z00.00 Encounter for general adult medical examination without abnormal findings; R92.313 Mammographic fatty tissue density, bilateral breasts; M85.80 Other specified disorders of bone density and structure, unspecified site; Z13.820 Encounter for screening for osteoporosis; Z80.3 Family history of malignant neoplasm of breast
CPT/HCPCS: 77063; 77067; 77080

== ENCOUNTER 2025-08-01 07:26 | Outpatient (CLI) | payer BC, SELFPAY ==
--- OUTSIDE RECORDS SUMMARY | 2024-12-14 05:30 | XMS_ITS ---
[facility] Address [address] [place] [id number] Care Team Providers Care Robotics Software Engineer Name Role Phone Jackie Aric Primary Care Provider BeltranChelo brink Unavailable [phone] Allergies Allergen (clinical drug ingredient) Drug/Non Drug Allergy documented on EMR Reaction Allergy Type Onset Date Status Penicillin Unknown Drug Allergy Active Results Component Value Reference Range Notes Bone density Reviewed date:05/24/2025 02:38:33 PM Interpretation:osteopenia, new diagnosis Performing Lab: Notes/Report: osteopenia, new diagnosis Bone density osteopenia Mammogram Reviewed date:05/18/2025 11:37:02 AM Interpretation:Negative Performing Lab: Notes/Report: Negative result neg REASON FOR VISIT annual physical with checkup [...] once a day; Duration: 30 day(s) Active Problems Problem Type SNOMED Code ICD Code Onset Dates Problem Status W/U Status Risk Notes Problem Osteopenia (921588322) Osteopenia, unspecified location (M85.80) Active confirmed Vital Signs Weight 230.4 lbs 12/14/2024 Blood pressure systolic 120 mm Hg 12/14/19 25 Blood pressure diastolic 80 mm Hg 025 Heart Rate 80 /min 12/14/2024 Height 66.50 in 12/14/2024 BMI 36.63 kg/m2 12/14/2024 Encounters Encounter Location Date Provider Diagnosis [facility] [address] [facility] [address] [place] [id number] 12/14/2024 Chelo Diego Routine physical examination Z00.00 [...] results to be scanned into her chart. Next Appt Details Follow Up: via phone to repo rt test results, Reason: Progress Notes * KENIA ELLISOB: [birth year] (64 yo F)Acc No.[id number]:12/14/2024 Physical Patient: Megna SHELLY VASQUEZ Provider: ARUNA Tellez :1960 A ge:64 Y S ex:Female Date:12/14/2024 Address:[address] [place] [address], [place], [id number] Pcp:Aric Mejia Subjective: * Chief Complaints: * [...] by mammogram - Z12.31 Plan: * Treatment: Value Reference Range r esult neg * Chelo Diego 12/14/2024 1: 13:25 PM > Needs after April 21 on same day as Sue Melendez 12/15/2024 9:20:07 AM > faxed to [facility] Oriana Blackwell 05/18/2025 11:36:50 AM EDT > Pt informed Notes: Will be having fasting labs checked [...] days, 90 Capsule, Refills 3.??5.?Osteoporosis screening?Imaging: Bone density (Performed Date - 05/12/2025)?osteopenia, new diagnosis* Value Reference Range B one density osteopenia * Chelo Diego 12/14/2024 1: 13:03 PM > Needs after April 21 on same day as mammogramSue Jacobson 12/15/2024 9:20:24 AM > faxed to [facility] SchedulingShadChelo marcelo 05/24/2025 02:38:29 PM EDT >see TE 6.?Breast cancer screening by mammogram?Imaging: Mammogram (Performed Date - 05/12/2025)?Negative* Value Reference Range r esult neg * Chelo Diego 12/14/2024 1: 13:25 PM > Needs after April 21 on same day as DEXATaSue fenton 12/15/2024 9:20:07 AM > faxed to [facility] Oriana Blackwell 05/18/2025 11:36:50 AM EDT > Pt informed * Procedure Codes: 3 074F SYST BP LT 130 MM HG, 3079F DIAST BP 80-89 MM HG * Follow Up: v ia phone to report test results * Images: Billing Information: * Visit Code: 15032 Preventive Care Est Pt. Age 65 and over. Modifiers: 25 97250 Office Visit, Est Pt., Level 3. * Procedure Codes: 3074F SYST BP LT 130 MM HG. 3079F DIAST BP 80-89 MM HG. * Electronic signature of ARUNA Hall on 08/01/2025 at 07:31 AM EDT Sign off status: Pending * Provider: ARUNA Tellez Date: 0 12/14/2024 Generated for Jaylan cardenas/Erica/eTransmitting on: 0 08/01/2025 07:31 AM EDT History and Physical Notes * [...]
--- OUTSIDE RECORDS SUMMARY | 2025-07-25 05:44 | XMS_ITS ---
[facility] [address] [facility] [address] [place] [id number] Care Team Providers Care Web Press Operator Helper Offset Name Role Phone Jackie Aric Primary Care Provider [phone] Chelo Loza [phone] REASON FOR VISIT Message Encounters Encounter Location Date Provider Diagnosis [facility] [address] [facility] [address] [facility] [address] [place] [phone] 07/25/2025 Chelo Diego Essential hypertensi on I10 and Fatigue R53.83 Assessments Encounter Date Diagnosis (ICD Code) Assessment Notes Treatment Notes Treatment Clinical Notes Section Notes 07/25/2025 Essential hypertension (ICD-10 - I10) 07/25/2025 Fatigue (ICD-10 - R53.83) Plan Of Treatment Pending Test Test Name Order Date H-TSH 07/25/2025 H-CBC 07/25/2025 H-VITAMIN D 07/25/2025 H-Lipid Panel 07/25/2025 H-CMP 07/25/2025 H-VITAMIN B12 07/25/2025 Progress Notes * JHONY ELLISMINHOB: [birth year] (64 yo F)Acc No.[id number]:07/25/2025 Patient: SHELLY EDMONDSON :1960 A ge:64 Y S ex:Female Address:[address] [facility], [place], [address] Subjective: * Chief Complaints: * M essage * Medical History: * Surgical History: * Hospitalization/Major Diagno stic Procedure: * Medications: Objective: * Vitals: * Physical Examination: Assessment: * Assessment: 1. E ssential hypertension - I10 2 . F atigue - R53.83 Plan: * Treatment: 2. F atigue L AB: H-TSH L AB: H-CBC L AB: H-VITAMIN D L AB: H-VITAMIN B12 * Procedure Codes: * true * Date: Generated for Jaylan cardenas/Erica/eTantoniasmitting on: 0 08/01/2025 07:30 AM EDT
--- OUTSIDE RECORDS SUMMARY | 2025-08-01 07:31 | XMS_ITS | Patient Health Record ---
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 Name Role Phone Aric Mejia Primary Care Provider Chelo Diego Unavailable [phone] Allergies Allergen (clinical drug ingredient) Drug/Non Drug Allergy documented on EMR Reaction Allergy Type Onset Date Status Penicillin Unknown Drug Allergy Active Results Component Value Reference Range Notes Bone density Reviewed date:05/24/2025 02:38:33 PM Interpretation:osteopenia, new diagnosis Performing Lab: Notes/Report: osteopenia, new diagnosis Bone density osteopenia Mammogram Reviewed date:05/18/2025 11:37:02 AM Interpretation:Negative Performing Lab: Notes/Report: Negative result neg Reason For Referral No Information Medications Medication SIG (Take, Route, Frequency, Duration) Notes Start Date End Date Status Alendronate Sodium 70 MG 1 tablet 30 min utes before the first food, beverage or medicine of the day with plain water and remain upright for 30 minutes Orally once a week 05/26/2025 Active amLODIPine Besy-Benazepril HCl 10-20 MG 1 cap(s) Orally once daily; Duration: 90 days Active Omeprazole 40 MG 1 cap(s) Orally once daily; Duration: 90 days Active Sertraline HCl 100 MG 1 tab(s) orally on ce a day; Duration: 90 days Active Multivitamin - 1 tab(s) orally once a day; Duration: 30 day(s) Active Immunizations Vaccine Route Administration Date Status Comme nts Tetanus Tdap-Adacel (over 7yrs) IM Intramuscular 07/14/2019 Administered Prevnar (PCV20) Unknown 04/25/2024 Administered Hepatitis A (adult) Unknown 08/26/2018 Administered Hepatitis A (adult) Unknown 03/24/2019 Administered Fluzone PF Quad (6-35 months) Unknown 08/26/2018 Administered Fluzone PF Quad (6-35 months) Unknown 08/29/2020 Administered Fluzone PF Quad (6-35 months) Unknown 08/22/2021 Administered Fluzone PF Quad (6-35 months) Unknown 08/13/2022 Administered COVID 19 Moderna Unknown 11/21/2020 Administered COVID 19 Moderna IM Intramuscular 12/21/2020 Administered COVID 19 Moderna Unknown 08/28/2021 Administered COVID 19 Moderna Unknown 03/21/2022 Administered Problems Problem Type SNOMED Code ICD Code Onset Dates Problem Status W/U Status Risk Notes Problem Essential hypertension (59149001) Essential hypertension (I10) Active confirmed Problem Anxiety (91407757) Anxiety (F41.9) Active confi rmed Problem Chronic pain (75485153) Other chronic pain (G89.29) Active confirmed Problem Post menopausal problems (N95.9) Active confirmed Problem Osteopenia (043341509) Osteopenia, unspecified location (M85.80) Active confirmed Problem Gastroesophageal reflux disease with esophagitis (disorder) (992729651) Gastroesophageal reflux disease with esophagitis without hemorrhage (K21.00) Active confirmed Vital Signs Heart Rate 80 /min 12/14/2024 Blood pressure diastolic 80 mm Hg 12/14/2024 Height 66.50 in 12/14/2024 Blood pressure systolic 120 mm Hg 12/14/2024 Weight 230.4 lbs 12/14/2024 BMI 36.63 kg/m2 12/14/2024 Encounters Encounter [facility] Date [facility] [address] [place], [place] [id number] 12/14/2024 Chelo Diego Routine physical examination Z00.00 ; Essential hypertension I10 ; Anxiety F41.9 ; Gastroesophageal reflux disease with esophagitis without hemorrhage K21.00 ; Osteoporosis screening Z13.820 and [facility] cancer [facility] mammogram Z12.31 [facility] [address] [place], [place] [id number] 08/30/2024 Aric [place] [facility] [address] [place], [place] [id number] 11/22/2024 Aric Mejia [facility] [address] [place], [place] [id number] 02/27/2025 Aric Mejia [facility] [address] [place], [place] [id number] 05/24/2025 Chelo Diego [facility] [address] [place], [place] [id number] 07/25/2025 Chelo Diego Essential hypertensi on I10 and Fatigue R53.83 Assessments Encounter Date Diagnosis (ICD Code) Assessment Notes Treatment Notes Treatment Clinical Notes Section Notes 12/14/2024 Routine physical examination (ICD-10 - Z00.00) Will be having fasting labs checked at work and she will bring these results to be scanned into her chart. 12/14/2024 Essential hypertension (ICD-10 - I10) 07/25/2025 Essential hypertension (ICD-10 - I10) 07/25/2025 Fatigue (ICD-10 - R53.83) 12/14/2024 Anxiety (ICD-10 - F41.9) 12/14/2024 Gastroesophageal reflux disease with esophagitis without hemorrhage (ICD-10 - K21.00) 12/14/2024 Osteoporosis screening (ICD-10 - Z13.820) 12/14/2024 Breast cancer screening by mammogram (ICD-10 - Z12.31) 12/14/2024 Other Plan Of Treatment Pending Test Test Name Order Date H-TSH 07/25/2025 H-CBC 07/25/2025 H-VITAMIN D 07/25/2025 H-Lipid Panel 07/25/2025 H-CMP 07/25/2025 H-VITAMIN B12 07/25/2025 Insurance Providers Payer Name Payer Address Payer Phone Subscriber Number Group Number Insured Name Patient Relationship to Insured Coverage Start Date Coverage End Date [employer] [address] [place] [address] [id number] SHELLY ELLIS Self - patient is the insured Medical (General) History Surgical History Surgery Date(Month/Year) cholecystectomy 1993 child 1982 child 1992 Hospitalization History Reason Date(Month/Year) see above
[2025-08-01 07:50] LABS: Hematocrit 41.8 % (37.0-47.0); Hemoglobin 13.8 g/dL (12.2-16.2); Immature Granulocytes % 0.3 %; Mean Corpuscular HGB Conc 33.0 g/dL (31.8-35.4); Mean Corpuscular Hemoglobin 28.3 pg (27.0-31.2); Mean Corpuscular Volume 85.7 fl (81-99); Nucleated Red Blood Cells % 0 %; Platelet Count 354 K/mm3 (142-424); Red Blood Count 4.88 M/mm3 (4.20-5.40); Red Cell Distribution Width-SD 47.5 fL; White Blood Count 8.7 K/mm3 (4.8-10.8)
[2025-08-01 08:55] LABS: Alanine Aminotransferase 20 U/L (12-78); Albumin Level 4.1 g/dl (3.5-5.0); Albumin/Globulin Ratio 1.7 (1.1-1.8); Alkaline Phosphatase 84 U/L (38-126); Anion Gap 12.3 mEq/L (5-15); Aspartate Amino Transferase 24 U/L (14-36); Bilirubin,Total 0.5 mg/dl (0.2-1.3); Blood Urea Nitrogen 15 mg/dl (7-17); Calcium 9.0 mg/dl (8.4-10.2); Carbon Dioxide 24 mmol/L (22.0-30.0); Chloride 107 mmol/L (98-107); Cholesterol 199 mg/dl (140-200); Creatinine,Serum 0.60 mg/dl (0.52-1.04); Estimated Glomerular Filt Rate 100 ml/min (>60); GFR (African American) 121 ML/MIN (>60); Globulin 2.4 g/dL (1.3-3.2); Glucose 100 mg/dl (74-100); HDL Cholesterol 70 mg/dl (40-60); Potassium 4.3 mmoL/L (3.5-5.1); Sodium 139 mmol/L (136-145); Total Protein,Serum 6.5 g/dl (6.3-8.2); Triglycerides 104 mg/dl (30-150)
[2025-08-01 09:12] LABS: 25-OH Vitamin D, Total 42.3 ng/mL (30-100)
[2025-08-01 09:25] LABS: Thyroid Stimulating Hormone 1.34 uIU/mL (0.465-4.68)
[2025-08-01 09:45] LABS: Vitamin B12 > 1000 pg/mL (239-931)
== END 2025-08-01 23:59 | disposition home or self-care (01) ==
LOC: LAB 07:29
PROVIDERS: PCP Physician Assistant; Visit Provider Physician Assistant
DX: I10 Essential (primary) hypertension (principal); R53.83 Other fatigue
CPT/HCPCS: 36415; 80053; 80061; 82306; 82607; 84443; 85025